=== PATIENT | male | born 1955 | race Caucasian/White ===

== ENCOUNTER 2018-08-13 01:31 | Emergency (ER) | payer BC, OTHER ==
[2018-08-13 02:01] VITALS: BP 144/70; PULSE 65; TEMP 98.3; BMI 25.0
[2018-08-13] MEDS ORDERED: PSEUDOEPHEDRINE HCL 30 MG TABLET PO ONE (03:31)
[2018-08-13] MEDS ORDERED: ACETAMINOPHEN 500 MG TABLET (FP) PO ONE (03:31)
--- NOTE | 2018-08-13 03:39 | PDOC ---
History of Present Illness - General Chief Complaint: Ear Problem Stated Complaint: RIGHT EAR PAIN Time Seen by Provider: 08/13/18 02:48 History Source: Patient Exam Limitations: No Limitations - History of Present Illness Initial Comments: 08/13/18 03:31 HISTORY OF PRESENT ILLNESS: This 63-year-old male past medical history of seizure disorder, hyperlipidemia, osteoporosis presents emergency Department with right ear pain for one week. Patient reports having upper respiratory symptoms for the past 3-4 weeks and was treated for sinusitis with Augmentin on 07/16. Patient denies any trauma to his ear or inserting any foreign objects into his ear canal. Denies drainage or discharge. Patient reports slightly muffled hearing in his regular compared to the left. No recent travel or sick contacts. PAST MEDICAL HISTORY: Seizure d/o, HLD, osteoporosis SURGICAL HISTORY: Denies ALLERGIES: No known drug allergies REVIEW OF SYSTEMS General/Constitutional: Denies fever or chills. Denies weakness, weight change. HEENT: Denies change in vision. Right ear pain. Denies discharge. Denies sore throat. Cardiovascular: Denies chest pain or shortness of breath. Respiratory: Denies cough, wheezing, or hemoptysis. Gastrointestinal: Denies nausea, vomiting, diarrhea or constipation. Denies rectal bleeding. Genitourinary: Denies dysuria, frequency, or change in urination. Musculoskeletal: Denies joint or muscle swelling or pain. Denies neck or back pain. Skin and breasts: Denies rash or easy bruising. Neurologic: Frontal headache. Denies vertigo, loss of consciousness, or loss of sensation. Psychiatric: Denies depression or anxiety. Endocrine: Denies increased thirst. Denies abnormal weight change. Hematologic/Lymphatic: Denies anemia, easy bleeding, or history of blood clots. Allergic/Immunologic: Denies hives or skin allergy. Denies latex allergy. PHYSICAL EXAM General Appearance: Well-appearing, appropriately dressed. No apparent distress , no intoxication. HEENT: EOMI, PERRLA, normal ENT inspection, normal voice, pharynx normal. No conjunctival pallor. No photophobia, scleral icterus. Cobblestoning in the posterior oropharynx. Right TM with retractions noted. No pus or erythema present Neck: Supple. Trachea midline. No tenderness, rigidity, carotid bruit, stridor , lymphadenopathy, or thyromegaly. Respiratory/Chest: Lungs CTAB. No shortness of breath, chest tenderness, respiratory distress, accessory muscle use. No crackles, rales, rhonchi, stridor , wheezing, dullness Cardiovascular: RRR. S1, S2. No JVD, murmur, bradycardia, tachycardia. Neurologic: marketing production coordinator II-XII intact. Fully oriented, alert. Appropriate mood/affect. Motor strength 5/5. No appreciable EOM palsy, facial droop or sensory deficit. Past History - Past Medical History Allergies/Adverse Reactions: Allergies Allergy/AdvReac Type Severity Reaction Status Date / Time No Known Allergies Allergy Verified 08/13/18 01:51 Home Medications: Ambulatory Orders NK [No Known Home Medication] 09/19/13 Hypercholesterolemia: Yes Seizures: Yes - Suicide/Smoking/Psychosocial Hx Smoking History: Never smoked Have you smoked in the past 12 months: No Information on smoking cessation initiated: No Hx Alcohol Use: No Drug/Substance Use Hx: No Substance Use Type: None *Physical Exam - Vital Signs Last Vital Signs Temp Pulse Resp BP Pulse Ox 98.3 F 65 18 144/70 98 08/13/18 01:47 08/13/18 01:47 08/13/18 01:47 08/13/18 01:47 08/13/18 01:47 Moderate Sedation - Procedure Monitoring Vital Signs: Procedure Monitoring Vital Signs Temperature 98.3 F 08/13/18 01:47 Pulse Rate 65 08/13/18 01:47 Respiratory Rate 18 08/13/18 01:47 Blood Pressure 144/70 08/13/18 01:47 O2 Sat by Pulse Oximetry (%) 98 08/13/18 01:47 Medical Decision Making - Medical Decision Making 08/13/18 03:32 A/P: 63-year-old male with history of seizures and hyperlipidemia with right ear pain for one week Right TM with noted retractions. No erythema present. External auditory canals clear without erythema or exudates Oropharynx clear without erythema, lesions or exudate Cobblestoning present in the posterior oropharynx Lungs clear to auscultation bilaterally Physical exam is consistent with upper respiratory infection retractions present likely due to increased mucus production Tylenol 975 mg orally now Sudafed 30 mg orally now Discharge home *DC/Admit/Observation/Transfer Diagnosis at time of Disposition: URI (upper respiratory infection) Qualifiers: URI type: unspecified viral URI Qualified Code(s): J06.9 - Acute upper respiratory infection, unspecified - Discharge Dispostion Disposition: HOME Condition at time of disposition: Stable Decision to Admit order: No - Referrals - Patient Instructions Additional Instructions: Rest, drink lots of fluids: Teas, water, soups, Pedialyte Saltwater gargles Steamy showers/seem to face break up mucus Avoid contact with others until fevers and cough resolved Lots of handwashing and good hygiene Continue [id number] medications for symptomatic relief Tylenol or Motrin for fever and pain Followup with private physician in one to 2 days as needed Return to emergency department for worsened symptoms, fevers, dehydration - Post Discharge Activity
[2018-08-13] MEDS ORDERED: PSEUDOEPHEDRINE HCL 60 MG TABLET ONE (03:40)
[2018-08-13] MEDS ORDERED: ACETAMINOPHEN 325 MG TABLET (FP) ONE (03:40)
--- NOTE | 2018-08-13 05:02 | PDOC ---
*Physical Exam - Vital Signs Last Vital Signs Temp Pulse Resp BP Pulse Ox 98.3 F 65 18 144/70 98 08/13/18 01:47 08/13/18 01:47 08/13/18 01:47 08/13/18 01:47 08/13/18 01:47 ED Treatment Course - Medications Given in the ED: ED Medications Discontinued Medications Generic Name Dose Route Start Last Admin Trade Name Davy PRN Reason Stop Dose Admin Acetaminophen 975 mg 08/13/18 03:31 08/13/18 03:43 Tylenol - PO 08/13/18 03:32 975 mg ONCE ONE Administration Pseudoephedrine HCl 30 mg 08/13/18 03:31 08/13/18 03:43 Sudafed - PO 08/13/18 03:32 30 mg ONCE ONE Administration Medical Decision Making - Medical Decision Making 08/13/18 05:01 Agree with exam as documented by W[employer] SUPPORT SPECIALIST Agree with assessment and plan *DC/Admit/Observation/Transfer Diagnosis at time of Disposition: URI (upper respiratory infection) Qualifiers: URI type: unspecified viral URI Qualified Code(s): J06.9 - Acute upper respiratory infection, unspecified - Discharge Dispostion Disposition: HOME Condition at time of disposition: Stable - Referrals - Patient Instructions Additional Instructions: Rest, drink lots of fluids: Teas, water, soups, Pedialyte Saltwater gargles Steamy showers/seem to face break up mucus Avoid contact with others until fevers and cough resolved Lots of handwashing and good hygiene Continue [id number] medications for symptomatic relief Tylenol or Motrin for fever and pain Followup with private physician in one to 2 days as needed Return to emergency department for worsened symptoms, fevers, dehydration - Post Discharge Activity
== END 2018-08-13 04:30 | disposition home or self-care (01) ==
LOC: JER 01:31
DX: J06.9 Acute upper respiratory infection, unspecified (principal); G40.909 Epilepsy, unspecified, not intractable, without status epilepticus; E78.00 Pure hypercholesterolemia, unspecified; M81.0 Age-related osteoporosis without current pathological fracture
CPT/HCPCS: 99281-25